=== PATIENT | male | born 1995 | race Caucasian/White ===

== ENCOUNTER → 2016-08-25 | Emergency (ER) | payer OTHER ==
[~2016-08-25] MED LIST: CIPROFLOXACIN 500 MG TABLET (RESTRICTED TO ID) PO ONE; OXYCODONE/APAP 5/325MG COMBO TABLET ONE; OXYCODONE/APAP 5/325MG COMBO TABLET PO ONE; metroNIDAZOLE 250 MG TABLET ONE; metroNIDAZOLE 500 MG TABLET PO ONE
[2016-08-25 16:37] VITALS: BP 150/74; PULSE 71; TEMP 97.8; BMI 27.3
--- NOTE | 2016-08-25 16:57 | PDOC ---
History of Present Illness - General History Source: Patient Exam Limitations: No Limitations - History of Present Illness Initial Comments: 08/25/16 16:57 CHIEF COMPLAINT: Abdominal pain HISTORY OF PRESENT ILLNESS: This is an otherwise healthy 21 year old male who presents for evaluation of abdominal pain and diarrhea. He states that he went to bed in his usual state of health at around 10pm, then woke up from sleep with right lower abdominal pain at around midnight. He has since had 6 episodes of diarrhea. He reports chills. He denies nausea, dysuria, and testicular swelling/pain. He was seen here in 2015 for RLQ pain and diagnosed with mesenteric adenitis by CT, but states that this pain is different and "deeper." PCP is Dr. Garcia. REVIEW OF SYSTEMS: GENERAL/CONSTITUTIONAL: Chills, no fever. No weakness. No weight change. HEAD, EYES, EARS, NOSE AND THROAT: No change in vision. No ear pain or discharge. No sore throat. CARDIOVASCULAR: No chest pain or palpitations. RESPIRATORY: No cough, wheezing, or shortness of breath. GASTROINTESTINAL: See HPI. GENITOURINARY: No dysuria, frequency, or change in urination. MUSCULOSKELETAL: No joint or muscle swelling or pain. No neck or back pain. SKIN: No rash or easy bruising. NEUROLOGIC: No headache, vertigo, loss of consciousness, or loss of sensation. PSYCHIATRIC: No depression or anxiety. ENDOCRINE: No increased thirst. No abnormal weight change. HEMATOLOGIC/LYMPHATIC: No anemia, easy bleeding, or history of blood clots. ALLERGIC/IMMUNOLOGIC: No hives or skin allergy. No latex allergy. PHYSICAL EXAM: GENERAL: The patient is awake, alert, and fully oriented, in no acute distress. HEAD: Normal with no signs of trauma. ENT: Pupils equal, round and reactive to light, extraocular movements intact, sclera anicteric, conjunctiva clear. Neck supple. LUNGS: Clear to auscultation bilaterally. Normal excursion. No respiratory distress or use of accessory muscles. CV: RRR, S1/S2, no MRG. Cap refill < 2 sec. ABDOMEN: Soft, non-distended, RLQ and LLQ tenderness to deep palpation without guarding or rebound tenderness. No scrotal edema or tenderness. EXTREMITIES: Normal range of motion, no edema. NEUROLOGICAL: Normal speech, normal gait. CN II-XII grossly intact. PSYCH: Normal mood, normal affect. SKIN: Warm, dry, normal turgor, no rashes or lesions noted. <Natalia Purcell - Last Filed: 08/25/16 18:12> <Renu De La Paz - Last Filed: 08/25/16 20:51> - General Chief Complaint: Pain Stated Complaint: ABD PAIN Time Seen by Provider: 08/25/16 16:54 Past History - Past Medical History Other medical history: NONE - Immunization History Immunization Up to Date: Yes - Psycho/Social/Smoking Cessation Hx Anxiety: No Suicidal Ideation: No Smoking History: Never smoked Have you smoked in the past 12 months: No Hx Alcohol Use: No Drug/Substance Use Hx: No Substance Use Type: None <Natalia Purcell - Last Filed: 08/25/16 18:12> <Renu De La Paz - Last Filed: 08/25/16 20:51> - Past Medical History Allergies/Adverse Reactions: Allergies Allergy/AdvReac Type Severity Reaction Status Date / Time No Known Allergies Allergy Verified 08/25/16 16:37 Home Medications: Ambulatory Orders Ciprofloxacin HCl [Cipro] 500 mg PO BID #28 tablet 08/25/16 Metronidazole [Flagyl -] 500 mg PO BID #28 tablet 08/25/16 Oxycodone HCl/Acetaminophen [Oxycodone-Acetaminophen 5-325] 1 each PO Q6H PRN # 20 tablet MDD 4 tabs 08/25/16 *Physical Exam - Vital Signs Last Vital Signs Temp Pulse Resp BP Pulse Ox 97.8 F 71 20 150/74 100 08/25/16 16:35 08/25/16 16:35 08/25/16 16:35 08/25/16 16:35 08/25/16 16:35 <Natalia Purcell - Last Filed: 08/25/16 18:12> - Vital Signs Last Vital Signs Temp Pulse Resp BP Pulse Ox 97.8 F 71 20 150/74 100 08/25/16 16:35 08/25/16 16:35 08/25/16 16:35 08/25/16 16:35 08/25/16 16:35 <Renu De La Paz - Last Filed: 08/25/16 20:51> ED Treatment Course - LABORATORY CBC & Chemistry Diagram: 08/25/16 17:13 08/25/16 17:13 <Natalia Purcell - Last Filed: 08/25/16 18:12> - LABORATORY CBC & Chemistry Diagram: 08/25/16 17:13 08/25/16 17:13 - ADDITIONAL ORDERS Additional order review: Laboratory Results 08/25/16 08/25/16 17:13 17:12 Sodium 141 Potassium 4.0 Chloride 105 Carbon Dioxide 28 Anion Gap 8 BUN 15 Creatinine 0.9 Creat Clearance w eGFR > 60 Random Glucose 84 Calcium 9.4 Total Bilirubin 0.5 AST 19 D ALT 36 Alkaline Phosphatase 53 Total Protein 7.7 Albumin 4.4 Urine Color Colorless Urine Appearance Clear Urine pH 7.0 Urine Protein Negative Urine Glucose (UA) Negative Urine Ketones Negative Urine Blood Negative Urine Nitrite Negative Urine Bilirubin Negative Urine Urobilinogen Negative Ur Leukocyte Esterase Negative 08/25/16 17:13 RBC 5.17 MCV 88.5 MCHC 34.4 RDW 12.9 MPV 7.5 Neutrophils % 58.1 Lymphocytes % 29.1 Monocytes % 9.8 Eosinophils % 2.4 Basophils % 0.6 <Renu De La Paz - Last Filed: 08/25/16 20:51> Medical Decision Making - Medical Decision Making 08/25/16 17:39 A/P: 21 year old male with abdominal pain. 1. Labs including CBC, comp, UA 2. CTAP to r/o appendicitis 3. Declines analgesia for now 08/25/16 18:12 WBCs within normal limits at 7.1 UA: negative <Natalia Purcell - Last Filed: 08/25/16 18:12> *DC/Admit/Observation/Transfer <Natalia Purcell - Last Filed: 08/25/16 18:12> - Discharge Dispostion Admit: No <Renu De La Paz - Last Filed: 08/25/16 20:51> Diagnosis at time of Disposition: Colitis, Mesenteric adenitis - Discharge Dispostion Disposition: HOME Condition at time of disposition: Improved - Prescriptions Prescriptions: Ciprofloxacin HCl [Cipro] 500 mg PO BID #28 tablet Metronidazole [Flagyl -] 500 mg PO BID #28 tablet Oxycodone HCl/Acetaminophen [Oxycodone-Acetaminophen 5-325] 1 each PO Q6H PRN # 20 tablet MDD 4 tabs PRN Reason: Pain - Referrals Referrals: Hector Garcia MD [Primary Care Provider] - Matthias Hernández MD [Staff Physician] - - Patient Instructions Printed Discharge Instructions: DI for Colitis, DI for Ulcerative Colitis Additional Instructions: FOLLOW UP WITH YOUR PRIMARY CARE PROVIDER OR DR. HERNÁNDEZ (GASTROENTEROLOGY). CALL TO SCHEDULE APPOINTMENT. TAKE MEDICATIONS PRESCRIBED. DO NOT DRIVE, DRINK ALCOHOL OR OPERATE HEAVY MACHINERY WHILE TAKING OXYCODONE. TAKE YOU MEDICATIONS PRESCRIBED EVEN IF FEELING BETTER. AVOID ALCOHOL, MOTRIN, SPICY FOODS, TAKE OUT FOODS UNTIL SYMPTOMS HAVE GOTTEN BETTER. Print Language: [place] CITIZ[place]
[2016-08-25 17:25] LABS: BASOPHIL 0.6 % (0-2.0); EOSINOPHIL 2.4 % (0-4.5); MCH 30.4 pg (25.7-33.7); MCHC 34.4 g/dl (32.0-35.9); MEAN CELL VOLUME 88.5 fl (80-96); MEAN PLT VOLUME 7.5 fl (7.5-11.1); NEUTROPHILS 58.1 % (42.8-82.8); PLATELET COUNT 182 K/MM3 (134-434); RDW 12.9 % (11.9-15.9); WHITE BLOOD COUNT 7.1 K/mm3 (4.0-10.0)
[2016-08-25 17:53] LABS: URINE APPEARANCE CLEAR; URINE BILIRUBIN NEGATIVE (NEGATIVE); URINE BLOOD NEGATIVE (NEGATIVE); URINE COLOR COLORLESS; URINE GLUCOSE (UA) NEGATIVE (NEGATIVE); URINE KETONE NEGATIVE (NEGATIVE); URINE LEUK ESTERASE NEGATIVE (NEGATIVE); URINE NITRITE NEGATIVE (NEGATIVE); URINE PROTEIN NEGATIVE (NEGATIVE); URINE UROBILINOGEN NEGATIVE E.U./dl (0.2-1.0)
[2016-08-25 18:10] LABS: ALBUMIN 4.4 g/dl (3.4-5.0); ANION GAP 8 (8-16); CALCIUM 9.4 mg/dL (8.5-10.1); CO2 28 mmol/L (21-32); COCKROFT - GAULT 151.19; CREATININE 0.9 mg/dL (0.7-1.3); GLUCOSE,RANDOM 84 mg/dL (74-106); SGOT/AST 19 U/L (15-37); SGPT/ALT 36 U/L (12-78)
[2016-08-25 18:12] LABS: ALK PHOS 53 U/L (45-117); BILIRUBIN,TOTAL 0.5 mg/dL (0.2-1.0); TOT PROT 7.7 g/dl (6.4-8.2)
== END | disposition home or self-care (01) ==
LOC: JER 16:33
DX: K52.9 Noninfective gastroenteritis and colitis, unspecified (principal); I88.0 Nonspecific mesenteric lymphadenitis
CPT/HCPCS: 36415; 74177-TC; 80053; 81003; 85025; 99281-25

== ENCOUNTER 2020-11-15 09:33 | Inpatient (IN) | payer SELFPAY ==
[2020-11-15 09:43] VITALS: BMI 25.8
[2020-11-15] MEDS ORDERED: CASIRIVIMAB/IMDEVIMAB 10 ML in SODIUM CHLORIDE 100 ML IVPB ONE (10:14)
[2020-11-15] MEDS ORDERED: DEXAMETHASONE SOD PHOSPHATE 10 MG/1 ML VIAL IVPUSH ONE (10:34)
[2020-11-15] MEDS ORDERED: CEFTRIAXONE 1,000 MG in DEXTROSE 5%-WATER - 50 ML IVPB ONE (10:55)
[2020-11-15] MEDS ORDERED: AZITHROMYCIN 250 MG TABLET PO ONE (10:58)
[2020-11-15] MEDS ORDERED: DEXAMETHASONE SOD PHOSPHATE 10 MG/1 ML VIAL ONE (11:48)
[2020-11-15] MEDS ORDERED: AZITHROMYCIN 250 MG TABLET ONE (11:48)
[2020-11-15] MEDS ORDERED: CEFTRIAXONE 1 GM/50 ML BAG ONE (11:49)
[2020-11-15] MEDS: SODIUM CHLORIDE 1,000 ML IV SCH ×2 (12:10→23:42)
[2020-11-15 12:38] LABS: VENOUS PCO2 46.3 mmHg (38-52); VENOUS PH 7.397 (7.310-7.410)
[2020-11-15 12:39] LABS: VENOUS BASE EXCESS 2.2 mmol/L (-2-2); VENOUS O2 SATURATION 35.7 % (70-80)
[2020-11-15 12:51] LABS: BASO % 0.1 % (0-2.0); HEMATOCRIT 46.1 % (35.4-49); HEMOGLOBIN 16.2 GM/dL (11.7-16.9); LYMPH % 5.8 % (8-40); MCH 31.6 pg (25.7-33.7); MCHC 35.1 g/dl (32.0-35.9); MEAN CELL VOLUME 90.2 fl (80-96); MEAN PLT VOLUME 7.9 fl (7.5-11.1); MONO % 7.5 % (3.8-10.2); NEUT % 86.6 % (42.8-82.8); PLATELET COUNT 286 10^3/uL (134-434); RBC 5.12 M/mm3 (4.00-5.60); RDW 12.4 % (11.9-15.9); WHITE BLOOD COUNT 13.6 K/mm3 (4.0-10.0)
[2020-11-15 12:58] LABS: CHLORIDE 100 mmol/L (98-107); SODIUM 137 mmol/L (136-145)
[2020-11-15 13:01] LABS: ALBUMIN 3.2 g/dl (3.4-5.0); ANION GAP 9 MMOL/L (8-16); BLOOD UREA NITROGEN 11.6 mg/dL (7-18); CALCIUM 8.8 mg/dL (8.5-10.1); CO2 28 mmol/L (21-32); GLUCOSE,RANDOM 87 mg/dL (74-106)
[2020-11-15 13:04] LABS: SGOT/AST 97 U/L (15-37); SGPT/ALT 93 U/L (13-61)
[2020-11-15 13:05] LABS: CREATININE 0.8 mg/dL (0.55-1.3)
[2020-11-15 13:06] LABS: TOT PROT 7.6 g/dl (6.4-8.2)
[2020-11-15 13:07] LABS: ALK PHOS 67 U/L (45-117); LDH 356 U/L (87-246)
[2020-11-15 13:16] LABS: ANISOCYTOSIS 0; HELMET CELLS 0; HOWELL-JOLLY BODIES 0; MACROCYTOSIS 0; OVALOCYTE 0; PLATELET ESTIMATE NORMAL; ROULEAU 0; SICKELED CELLS 0; TARGET CELLS 0; TEAR DROP CELLS 0; TOXIC GRANULATION 0
[2020-11-15] MEDS ORDERED: ONDANSETRON 4 MG/2 ML VIAL IVPUSH PRN (15:23)
[2020-11-15] MEDS ORDERED: IBUPROFEN 600 MG TABLET (FP) PO PRN (15:23)
[2020-11-15] MEDS ORDERED: ACETAMINOPHEN 500 MG TABLET (FP) PO PRN (15:23)
[2020-11-15] MEDS ORDERED: ALBUTEROL SO4 HFA INHALER IH PRN (19:24)
[2020-11-15] MEDS: MELATONIN 5 MG TABLETS PO SCH (23:27)
[2020-11-16] MEDS ORDERED: PT OWN MED DRAWER 7, Y5N ONE ×2 (09:58→11:17)
[2020-11-16] MEDS ORDERED: cefTRIAXone SODIUM 1 GM VIAL ONE (09:58)
[2020-11-16] MEDS ORDERED: DEXTROSE 5%-WATER - 50 ML IVPB ONE (09:58)
[2020-11-16 10:00] LABS: HEMATOCRIT 43.1 % (35.4-49); MCH 30.9 pg (25.7-33.7); MCHC 34.7 g/dl (32.0-35.9); MEAN PLT VOLUME 7.5 fl (7.5-11.1); PLATELET COUNT 291 10^3/uL (134-434); RBC 4.84 M/mm3 (4.00-5.60); RDW 12.7 % (11.9-15.9); WHITE BLOOD COUNT 11.4 K/mm3 (4.0-10.0)
[2020-11-16] MEDS: SODIUM CHLORIDE 1,000 ML IV SCH (10:02)
[2020-11-16] MEDS: ENOXAPARIN NA (PORCINE) 40 MG/0.4 ML DISP.SYRIN SQ SCH (10:03)
[2020-11-16] MEDS: CEFTRIAXONE 1 GM in DEXTROSE 5%-WATER - 50 ML IVPB SCH (10:03)
[2020-11-16] MEDS: ZINC SULFATE 220 MG CAPSULE (FP) PO SCH (10:03)
[2020-11-16] MEDS: FAMOTIDINE 20 MG TABLET PO SCH (10:03)
[2020-11-16] MEDS: DEXAMETHASONE SOD PHOSPHATE 4 MG/1 ML VIAL IVPUSH SCH (10:03)
[2020-11-16 10:21] LABS: CALCIUM 8.4 mg/dL (8.5-10.1)
[2020-11-16 10:22] LABS: ALBUMIN 2.7 g/dl (3.4-5.0); BLOOD UREA NITROGEN 13.9 mg/dL (7-18); MAGNESIUM 2.2 mg/dL (1.8-2.4)
[2020-11-16 10:25] LABS: BILIRUBIN,TOTAL 0.7 mg/dL (0.2-1); CREATININE 0.7 mg/dL (0.55-1.3); PHOSPHOROUS 3.2 mg/dL (2.5-4.9)
[2020-11-16 10:27] LABS: TOT PROT 6.5 g/dl (6.4-8.2)
[2020-11-16 10:44] LABS: ERYTHROCYTE SEDIMENTATION RATE 44 mm/hr (0-10)
[2020-11-16] MEDS: ASCORBIC ACID 250 MG TABLET (FP) PO SCH (11:54)
[2020-11-16] MEDS: AZITHROMYCIN IVPB 250 MG in DEXTROSE 5%-WATER - 250 ML IVPB SCH (11:54)
[2020-11-16] MEDS: CHOLECALCIFEROL (VIT D3) 5000 UNITS (125 MCG) CAP PO SCH (11:54)
[2020-11-16] MEDS: BUDESONIDE/FORMETEROL FUMARATE 160/4.5 mcg INHALER IH SCH ×2 (15:46→22:19)
[2020-11-16] MEDS: ALBUTEROL SO4 HFA INHALER IH SCH ×3 (15:47→19:59)
[2020-11-16] MEDS: MELATONIN 5 MG TABLETS PO SCH (22:19)
[2020-11-17] MEDS: ALBUTEROL SO4 HFA INHALER IH SCH ×4 (08:55→21:23)
[2020-11-17] MEDS ORDERED: DEXTROSE 5%-WATER - 50 ML IVPB ONE (09:25)
[2020-11-17] MEDS ORDERED: PT OWN MED DRAWER 7, Y5N ONE (09:25)
[2020-11-17] MEDS ORDERED: cefTRIAXone SODIUM 1 GM VIAL ONE (09:25)
[2020-11-17 09:33] LABS: HEMOGLOBIN 14.8 GM/dL (11.7-16.9); MCH 30.7 pg (25.7-33.7); MCHC 34.4 g/dl (32.0-35.9); MEAN CELL VOLUME 89.3 fl (80-96); MEAN PLT VOLUME 7.1 fl (7.5-11.1); PLATELET COUNT 358 10^3/uL (134-434); RBC 4.82 M/mm3 (4.00-5.60); RDW 12.7 % (11.9-15.9); WHITE BLOOD COUNT 14.9 K/mm3 (4.0-10.0)
[2020-11-17] MEDS: DEXAMETHASONE SOD PHOSPHATE 4 MG/1 ML VIAL IVPUSH SCH (09:37)
[2020-11-17] MEDS: CEFTRIAXONE 1 GM in DEXTROSE 5%-WATER - 50 ML IVPB SCH (09:37)
[2020-11-17] MEDS: FAMOTIDINE 20 MG TABLET PO SCH (09:37)
[2020-11-17] MEDS: ZINC SULFATE 220 MG CAPSULE (FP) PO SCH (09:38)
[2020-11-17] MEDS: ASCORBIC ACID 250 MG TABLET (FP) PO SCH (09:39)
[2020-11-17 10:07] LABS: ALBUMIN 2.9 g/dl (3.4-5.0); BILIRUBIN,TOTAL 0.7 mg/dL (0.2-1); CREATININE 0.8 mg/dL (0.55-1.3)
[2020-11-17 10:09] LABS: BLOOD UREA NITROGEN 15.4 mg/dL (7-18); CALCIUM 8.8 mg/dL (8.5-10.1); TOT PROT 6.8 g/dl (6.4-8.2)
[2020-11-17] MEDS: ENOXAPARIN NA (PORCINE) 40 MG/0.4 ML DISP.SYRIN SQ SCH (10:17)
[2020-11-17] MEDS: BUDESONIDE/FORMETEROL FUMARATE 160/4.5 mcg INHALER IH SCH ×2 (10:17→21:23)
[2020-11-17] MEDS: AZITHROMYCIN IVPB 250 MG in DEXTROSE 5%-WATER - 250 ML IVPB SCH (10:48)
[2020-11-17] MEDS: CHOLECALCIFEROL (VIT D3) 5000 UNITS (125 MCG) CAP PO SCH (10:49)
[2020-11-17] MEDS ORDERED: REMDESIVIR 200 MG in SODIUM CHLORIDE 250 ML IVPB ONE (13:00)
[2020-11-17] MEDS: MELATONIN 5 MG TABLETS PO SCH (21:23)
[2020-11-18 07:03] LABS: HEMATOCRIT 42.3 % (35.4-49); HEMOGLOBIN 14.8 GM/dL (11.7-16.9); MCH 31.5 pg (25.7-33.7); MCHC 34.9 g/dl (32.0-35.9); MEAN CELL VOLUME 90.2 fl (80-96); MEAN PLT VOLUME 7.5 fl (7.5-11.1); PLATELET COUNT 420 10^3/uL (134-434); RBC 4.69 M/mm3 (4.00-5.60); RDW 12.4 % (11.9-15.9); WHITE BLOOD COUNT 14.7 K/mm3 (4.0-10.0)
[2020-11-18 07:33] LABS: ALBUMIN 2.9 g/dl (3.4-5.0); CALCIUM 8.8 mg/dL (8.5-10.1)
[2020-11-18 07:35] LABS: BLOOD UREA NITROGEN 17.6 mg/dL (7-18); MAGNESIUM 2.3 mg/dL (1.8-2.4)
[2020-11-18 07:37] LABS: CREATININE 0.9 mg/dL (0.55-1.3)
[2020-11-18 07:38] LABS: BILIRUBIN,TOTAL 0.9 mg/dL (0.2-1); TOT PROT 7.2 g/dl (6.4-8.2)
[2020-11-18 08:47] LABS: ANISOCYTOSIS 0; HELMET CELLS 0; HOWELL-JOLLY BODIES 0; MACROCYTOSIS 0; OVALOCYTE 0; PLATELET ESTIMATE NORMAL; ROULEAU 0; SICKELED CELLS 0; TARGET CELLS 0; TEAR DROP CELLS 0; TOXIC GRANULATION 0
[2020-11-18] MEDS ORDERED: cefTRIAXone SODIUM 1 GM VIAL ONE (09:00)
[2020-11-18] MEDS ORDERED: DEXTROSE 5%-WATER - 50 ML IVPB ONE (09:00)
[2020-11-18] MEDS: ENOXAPARIN NA (PORCINE) 40 MG/0.4 ML DISP.SYRIN SQ SCH (09:35)
[2020-11-18] MEDS: DEXAMETHASONE SOD PHOSPHATE 4 MG/1 ML VIAL IVPUSH SCH (09:35)
[2020-11-18] MEDS: ZINC SULFATE 220 MG CAPSULE (FP) PO SCH (09:35)
[2020-11-18] MEDS: CEFTRIAXONE 1 GM in DEXTROSE 5%-WATER - 50 ML IVPB SCH (09:36)
[2020-11-18] MEDS: FAMOTIDINE 20 MG TABLET PO SCH (09:36)
[2020-11-18] MEDS: CHOLECALCIFEROL (VIT D3) 5000 UNITS (125 MCG) CAP PO SCH (09:36)
[2020-11-18] MEDS: ALBUTEROL SO4 HFA INHALER IH SCH ×5 (09:36→20:53)
[2020-11-18] MEDS: ASCORBIC ACID 250 MG TABLET (FP) PO SCH (09:36)
[2020-11-18] MEDS: BUDESONIDE/FORMETEROL FUMARATE 160/4.5 mcg INHALER IH SCH ×2 (09:37→22:35)
[2020-11-18] MEDS: SODIUM CHLORIDE 1,000 ML IV SCH (11:13)
[2020-11-18] MEDS: AZITHROMYCIN IVPB 250 MG in DEXTROSE 5%-WATER - 250 ML IVPB SCH (11:13)
[2020-11-18] MEDS: REMDESIVIR 100 MG in SODIUM CHLORIDE 250 ML IVPB SCH (14:46)
[2020-11-18] MEDS: MELATONIN 5 MG TABLETS PO SCH (21:12)
[2020-11-19] MEDS ORDERED: cefTRIAXone SODIUM 1 GM VIAL ONE (09:52)
[2020-11-19] MEDS ORDERED: DEXTROSE 5%-WATER - 50 ML IVPB ONE (09:53)
[2020-11-19] MEDS: ZINC SULFATE 220 MG CAPSULE (FP) PO SCH (10:02)
[2020-11-19] MEDS: FAMOTIDINE 20 MG TABLET PO SCH (10:02)
[2020-11-19] MEDS: DEXAMETHASONE SOD PHOSPHATE 4 MG/1 ML VIAL IVPUSH SCH (10:02)
[2020-11-19] MEDS: CHOLECALCIFEROL (VIT D3) 5000 UNITS (125 MCG) CAP PO SCH (10:02)
[2020-11-19] MEDS: ASCORBIC ACID 250 MG TABLET (FP) PO SCH (10:02)
[2020-11-19 10:04] LABS: HEMATOCRIT 45.6 % (35.4-49); HEMOGLOBIN 15.8 GM/dL (11.7-16.9); MCH 31.7 pg (25.7-33.7); MCHC 34.8 g/dl (32.0-35.9); MEAN PLT VOLUME 7.6 fl (7.5-11.1); PLATELET COUNT 482 10^3/uL (134-434); RDW 12.6 % (11.9-15.9)
[2020-11-19] MEDS: ENOXAPARIN NA (PORCINE) 40 MG/0.4 ML DISP.SYRIN SQ SCH (10:04)
[2020-11-19] MEDS: ALBUTEROL SO4 HFA INHALER IH SCH ×4 (10:04→21:19)
[2020-11-19] MEDS: CEFTRIAXONE 1 GM in DEXTROSE 5%-WATER - 50 ML IVPB SCH (10:04)
[2020-11-19] MEDS: BUDESONIDE/FORMETEROL FUMARATE 160/4.5 mcg INHALER IH SCH ×2 (10:04→22:15)
[2020-11-19 10:22] LABS: ALBUMIN 3.2 g/dl (3.4-5.0); BLOOD UREA NITROGEN 14.1 mg/dL (7-18); CALCIUM 8.8 mg/dL (8.5-10.1); MAGNESIUM 2.4 mg/dL (1.8-2.4)
[2020-11-19 10:26] LABS: BILIRUBIN,TOTAL 0.9 mg/dL (0.2-1)
[2020-11-19 10:31] LABS: CREATININE 0.9 mg/dL (0.55-1.3); TOT PROT 8.1 g/dl (6.4-8.2)
[2020-11-19 10:40] LABS: ANISOCYTOSIS 0; MACROCYTOSIS 0; PLATELET ESTIMATE INCREASED
[2020-11-19] MEDS: AZITHROMYCIN IVPB 250 MG in DEXTROSE 5%-WATER - 250 ML IVPB SCH (11:23)
[2020-11-19] MEDS: REMDESIVIR 100 MG in SODIUM CHLORIDE 250 ML IVPB SCH (14:10)
[2020-11-19] MEDS: SODIUM CHLORIDE 1,000 ML IV SCH (17:45)
[2020-11-19] MEDS: MELATONIN 5 MG TABLETS PO SCH (21:19)
[2020-11-20 09:28] LABS: HEMATOCRIT 45.5 % (35.4-49); HEMOGLOBIN 15.8 GM/dL (11.7-16.9); MCH 31.2 pg (25.7-33.7); MCHC 34.8 g/dl (32.0-35.9); MEAN CELL VOLUME 89.7 fl (80-96); MEAN PLT VOLUME 7.4 fl (7.5-11.1); PLATELET COUNT 455 10^3/uL (134-434); RBC 5.07 M/mm3 (4.00-5.60); RDW 12.8 % (11.9-15.9); WHITE BLOOD COUNT 13.1 K/mm3 (4.0-10.0)
[2020-11-20 10:00] LABS: ALBUMIN 3.2 g/dl (3.4-5.0); BLOOD UREA NITROGEN 16.9 mg/dL (7-18); CALCIUM 8.9 mg/dL (8.5-10.1); MAGNESIUM 2.3 mg/dL (1.8-2.4)
[2020-11-20] MEDS: ALBUTEROL SO4 HFA INHALER IH SCH ×4 (10:00→20:42)
[2020-11-20 10:02] LABS: BILIRUBIN,TOTAL 0.7 mg/dL (0.2-1); TOT PROT 6.8 g/dl (6.4-8.2)
[2020-11-20 10:03] LABS: CREATININE 0.8 mg/dL (0.55-1.3)
[2020-11-20 10:35] LABS: ANISOCYTOSIS 0; HELMET CELLS 0; HOWELL-JOLLY BODIES 0; MACROCYTOSIS 0; OVALOCYTE 0; PLATELET ESTIMATE NORMAL; ROULEAU 0; SICKELED CELLS 0; TARGET CELLS 0; TEAR DROP CELLS 0; TOXIC GRANULATION 0
[2020-11-20] MEDS ORDERED: cefTRIAXone SODIUM 1 GM VIAL ONE (10:43)
[2020-11-20] MEDS ORDERED: DEXTROSE 5%-WATER - 50 ML IVPB ONE (10:43)
[2020-11-20] MEDS ORDERED: PT OWN MED DRAWER 7, Y5N ONE (10:43)
[2020-11-20] MEDS: CEFTRIAXONE 1 GM in DEXTROSE 5%-WATER - 50 ML IVPB SCH (10:49)
[2020-11-20] MEDS: ASCORBIC ACID 250 MG TABLET (FP) PO SCH (10:50)
[2020-11-20] MEDS: BUDESONIDE/FORMETEROL FUMARATE 160/4.5 mcg INHALER IH SCH ×2 (10:50→21:22)
[2020-11-20] MEDS: CHOLECALCIFEROL (VIT D3) 5000 UNITS (125 MCG) CAP PO SCH (10:50)
[2020-11-20] MEDS: ENOXAPARIN NA (PORCINE) 40 MG/0.4 ML DISP.SYRIN SQ SCH (10:50)
[2020-11-20] MEDS: ZINC SULFATE 220 MG CAPSULE (FP) PO SCH (10:50)
[2020-11-20] MEDS: FAMOTIDINE 20 MG TABLET PO SCH (10:51)
[2020-11-20] MEDS: DEXAMETHASONE SOD PHOSPHATE 4 MG/1 ML VIAL IVPUSH SCH (10:51)
[2020-11-20] MEDS: REMDESIVIR 100 MG in SODIUM CHLORIDE 250 ML IVPB SCH (13:17)
[2020-11-20] MEDS: APIXABAN 5 MG TABLET PO SCH (21:22)
[2020-11-20] MEDS: MELATONIN 5 MG TABLETS PO SCH (21:22)
[2020-11-21 08:36] LABS: HEMATOCRIT 47.6 % (35.4-49); HEMOGLOBIN 16.5 GM/dL (11.7-16.9); MCH 31.4 pg (25.7-33.7); MCHC 34.6 g/dl (32.0-35.9); MEAN CELL VOLUME 90.8 fl (80-96); MEAN PLT VOLUME 7.4 fl (7.5-11.1); PLATELET COUNT 496 10^3/uL (134-434); RBC 5.24 M/mm3 (4.00-5.60); RDW 12.9 % (11.9-15.9)
[2020-11-21 09:09] LABS: ALBUMIN 3.4 g/dl (3.4-5.0); BLOOD UREA NITROGEN 17.1 mg/dL (7-18); CALCIUM 9.4 mg/dL (8.5-10.1); MAGNESIUM 2.5 mg/dL (1.8-2.4)
[2020-11-21 09:11] LABS: CREATININE 0.9 mg/dL (0.55-1.3)
[2020-11-21 09:12] LABS: BILIRUBIN,TOTAL 0.7 mg/dL (0.2-1); TOT PROT 7.2 g/dl (6.4-8.2)
[2020-11-21] MEDS ORDERED: cefTRIAXone SODIUM 1 GM VIAL ONE (09:22)
[2020-11-21] MEDS ORDERED: PT OWN MED DRAWER 7, Y5N ONE (09:22)
[2020-11-21] MEDS ORDERED: DEXTROSE 5%-WATER - 50 ML IVPB ONE (09:22)
[2020-11-21] MEDS: CEFTRIAXONE 1 GM in DEXTROSE 5%-WATER - 50 ML IVPB SCH (09:25)
[2020-11-21] MEDS: ASCORBIC ACID 250 MG TABLET (FP) PO SCH (09:26)
[2020-11-21] MEDS: FAMOTIDINE 20 MG TABLET PO SCH (09:26)
[2020-11-21] MEDS: APIXABAN 5 MG TABLET PO SCH ×2 (09:26→21:06)
[2020-11-21] MEDS: BUDESONIDE/FORMETEROL FUMARATE 160/4.5 mcg INHALER IH SCH ×2 (09:26→21:06)
[2020-11-21] MEDS: ZINC SULFATE 220 MG CAPSULE (FP) PO SCH (09:26)
[2020-11-21] MEDS: DEXAMETHASONE 4 MG TABLET (FP) PO SCH (09:26)
[2020-11-21] MEDS: CHOLECALCIFEROL (VIT D3) 5000 UNITS (125 MCG) CAP PO SCH (09:26)
[2020-11-21] MEDS: ALBUTEROL SO4 HFA INHALER IH SCH ×4 (09:26→21:06)
[2020-11-21 11:56] LABS: ANISOCYTOSIS 0; MACROCYTOSIS 0; PLATELET ESTIMATE INCREASED
[2020-11-21] MEDS: MELATONIN 5 MG TABLETS PO SCH (21:06)
[2020-11-22 07:44] LABS: ALBUMIN 3.3 g/dl (3.4-5.0); MAGNESIUM 2.4 mg/dL (1.8-2.4)
[2020-11-22 07:46] LABS: HEMATOCRIT 47.4 % (35.4-49); HEMOGLOBIN 16.3 GM/dL (11.7-16.9); MCH 30.9 pg (25.7-33.7); MCHC 34.4 g/dl (32.0-35.9); MEAN CELL VOLUME 89.7 fl (80-96); MEAN PLT VOLUME 7.3 fl (7.5-11.1); PLATELET COUNT 542 10^3/uL (134-434); RBC 5.28 M/mm3 (4.00-5.60); RDW 12.8 % (11.9-15.9); WHITE BLOOD COUNT 19.5 K/mm3 (4.0-10.0)
[2020-11-22 07:47] LABS: CREATININE 0.8 mg/dL (0.55-1.3)
[2020-11-22 07:49] LABS: BILIRUBIN,TOTAL 0.6 mg/dL (0.2-1)
[2020-11-22] MEDS: ALBUTEROL SO4 HFA INHALER IH SCH ×2 (09:18→13:09)
[2020-11-22 09:56] LABS: ANISOCYTOSIS 0; HELMET CELLS 0; HOWELL-JOLLY BODIES 0; MACROCYTOSIS 0; OVALOCYTE 0; PLATELET ESTIMATE INCREASED; ROULEAU 0; SICKELED CELLS 0; TARGET CELLS 0; TEAR DROP CELLS 0; TOXIC GRANULATION 0
[2020-11-22] MEDS ORDERED: PT OWN MED DRAWER 7, Y5N ONE (10:25)
[2020-11-22] MEDS: CHOLECALCIFEROL (VIT D3) 5000 UNITS (125 MCG) CAP PO SCH (10:27)
[2020-11-22] MEDS: FAMOTIDINE 20 MG TABLET PO SCH (10:27)
[2020-11-22] MEDS: ZINC SULFATE 220 MG CAPSULE (FP) PO SCH (10:27)
[2020-11-22] MEDS: DEXAMETHASONE 4 MG TABLET (FP) PO SCH (10:27)
[2020-11-22] MEDS: APIXABAN 5 MG TABLET PO SCH (10:27)
[2020-11-22] MEDS: ASCORBIC ACID 250 MG TABLET (FP) PO SCH (10:28)
[2020-11-22] MEDS: BUDESONIDE/FORMETEROL FUMARATE 160/4.5 mcg INHALER IH SCH (11:03)
[2020-11-22 14:18] VITALS: TEMP 98.4
[2020-11-22 14:33] VITALS: BP 137/68; PULSE 85
== END 2020-11-22 15:20 | disposition home or self-care (01) | DRG 137 ==
LOC: JER 09:33 → JERBED 13:35 → J5S 21:24 → J4S 11-21 21:44
PROVIDERS: ADMIT Internal Medicine; ATTEND Nurse Practitioner Family
PROC: XW033E5 Introduction of Remdesivir Anti-infective into Peripheral Vein, Percutaneous Approach, New Technology Group 5 (ICD-10-PCS; principal; 2020-11-17)
DX: U07.1 COVID-19 (principal); J96.01 Acute respiratory failure with hypoxia; J15.9 Unspecified bacterial pneumonia; R79.89 Other specified abnormal findings of blood chemistry; K76.0 Fatty (change of) liver, not elsewhere classified
CPT/HCPCS: 36415; 71045-TC-FY; 71046-TC-FY; 76705-TC; 80053; 82550; 82728; 82803; 83615; 83735; 84100; 84484; 85025; 85027; 85379; 85651; 86140; 87804; 87899; 93005; 93010; 94010; 94761; 99285-25; C9399; C9803; J1100; U0003; U0005